=== PATIENT | female | born 1995 | race Caucasian/White ===

== ENCOUNTER 2018-03-14 21:47 | Emergency (ER) | payer OTHER ==
[~2018-03-14] VITALS: Ht 172.7 cm; Wt 83.9 kg
[~2018-03-14 21:47] MED LIST: RHOGAM300 MCG/SY IM
== END 2018-03-15 06:44 ==
LOC: ER 21:47
DX: O03.4 Incomplete spontaneous abortion without complication (principal)

== ENCOUNTER 2019-11-29 05:33 | Inpatient (IN) | payer OTHER ==
[~2019-11-29] VITALS: Ht 172.7 cm; Wt 90.7 kg
[2019-11-29] MEDS ORDERED: PRENATAL TABLE1 EACH PO (06:48)
== END 2019-12-01 16:51 | DRG 807 ==
LOC: LDR 05:33 → OB/GYN 05:33
PROVIDERS: ADMIT Obstetrics & Gynecology; ATTEND Obstetrics & Gynecology
PROC: 10E0XZZ Delivery of Products of Conception, External Approach (ICD-10-PCS; principal; 2019-11-29)
PROC: 4A1HXFZ Monitoring of Products of Conception, Cardiac Rhythm, External Approach (ICD-10-PCS; 2019-11-29)
DX: O80 Encounter for full-term uncomplicated delivery (principal); Z37.0 Single live birth; Z3A.39 39 weeks gestation of pregnancy

== ENCOUNTER 2022-10-08 15:26 | Outpatient (CLI) | payer OTHER ==
[~2022-10-08 15:26] MED LIST changes: +PRENATAL TABLE1 EACH PO
== END 2022-10-08 17:09 | disposition home or self-care (01) ==
LOC: PRENATAL 15:26
PROVIDERS: ATTEND Obstetrics & Gynecology Maternal & Fetal Medicine
DX: O36.80X0 Pregnancy with inconclusive fetal viability, not applicable or unspecified (principal); Z3A.14 14 weeks gestation of pregnancy

== ENCOUNTER 2022-11-26 11:35 | Outpatient (CLI) | payer OTHER | END 2022-11-26 13:22 | disposition home or self-care (01) | LOC: PRENATAL 11:35 | PROVIDERS: ATTEND Obstetrics & Gynecology Maternal & Fetal Medicine | DX: O35.9XX0 Maternal care for (suspected) fetal abnormality and damage, unspecified, not applicable or unspecified (principal); O35.3XX0 Maternal care for (suspected) damage to fetus from viral disease in mother, not applicable or unspecified; Z3A.21 21 weeks gestation of pregnancy ==

== ENCOUNTER 2023-02-26 14:48 | Outpatient (CLI) | payer OTHER | END 2023-02-26 15:59 | disposition home or self-care (01) | LOC: PRENATAL 14:48 | PROVIDERS: ATTEND Obstetrics & Gynecology Maternal & Fetal Medicine | DX: O26.849 Uterine size-date discrepancy, unspecified trimester (principal); O36.8199 Decreased fetal movements, unspecified trimester, other fetus; Z3A.34 34 weeks gestation of pregnancy ==

== ENCOUNTER 2023-03-15 18:27 | Outpatient (CLI) | payer OTHER ==
[2023-03-15 19:20] LABS: HEMATOCRIT 31.8 % (36.0-45.00); HEMOGLOBIN 10.3 g/dL (12.0-15.00); MEAN CELL VOLUME 88.4 fL (80.00-100.00); MEAN CORPUSCULAR HEMOGLOBIN 28.8 pg (27.00-32.0); MEAN CORPUSCULAR HGB CONC 32.6 g/dl (32.0-36.0); PLATELET COUNT 198 K/uL (150-450); RED BLOOD COUNT 3.59 M/uL (4.00-6.00)
== END 2023-03-16 00:25 | disposition home or self-care (01) ==
LOC: OBS/DEL 18:27
PROVIDERS: ATTEND Obstetrics & Gynecology
DX: O26.893 Other specified pregnancy related conditions, third trimester (principal); R10.2 Pelvic and perineal pain; Z3A.37 37 weeks gestation of pregnancy

== ENCOUNTER 2023-03-31 05:30 | Inpatient (IN) | payer OTHER ==
[~2023-03-31] VITALS: Ht 175.3 cm; Wt 94.3 kg
[2023-03-31 07:00] LABS: URINE APPEARANCE Clear; URINE BILIRRUBIN Negative (NEGATIVE); URINE BLOOD Negative; URINE COLOR Yellow; URINE GLUCOSE Negative (NEGATIVE); URINE LEUKOCYTE Moderate; URINE NITRATE Negative; URINE PROTEIN Negative (NEGATIVE); URINE UROBILINOGEN 0.2 E.U./dl
[2023-03-31 07:03] LABS: URINE BACTERIA 1719.8 uL (0.0-1933); URINE EPITHELIAL CELLS 60.1 uL (0.0-38.8); URINE RBC 5.8 uL (0.0-20.8); URINE WBC 34.3 uL (0.0-23.2)
[2023-03-31 07:11] LABS: HEMATOCRIT 32.6 % (36.0-45.00); MEAN CORPUSCULAR HEMOGLOBIN 29.4 pg (27.00-32.0); MEAN CORPUSCULAR HGB CONC 33.8 g/dl (32.0-36.0); PLATELET COUNT 185 K/uL (150-450); RED BLOOD COUNT 3.75 M/uL (4.00-6.00); RED CELL DISTRIBUTION WIDTH 15.3 % (11.5-14.5)
[2023-03-31 08:18] LABS: URINE CRYSTALS NEGATIVE /HPF
[2023-03-31 08:20] LABS: URINE YEAST NEGATIVE /hpf
[2023-04-01 01:26] LABS: HEMATOCRIT 32.3 % (36.0-45.00); MEAN CORPUSCULAR HEMOGLOBIN 28.8 pg (27.00-32.0); MEAN CORPUSCULAR HGB CONC 32.7 g/dl (32.0-36.0); PLATELET COUNT 172 K/uL (150-450); RED BLOOD COUNT 3.67 M/uL (4.00-6.00)
[2023-04-01 01:34] LABS: HEMOGLOBIN 10.6 g/dL (12.0-15.00)
== END 2023-04-02 15:41 | disposition home or self-care (01) | DRG 807 ==
LOC: LDR 05:30 → OB/GYN 05:30
PROVIDERS: ADMIT Obstetrics & Gynecology; ATTEND Obstetrics & Gynecology
PROC: 10E0XZZ Delivery of Products of Conception, External Approach (ICD-10-PCS; principal; 2023-03-31)
PROC: 0KQM0ZZ Repair Perineum Muscle, Open Approach (ICD-10-PCS; 2023-03-31)
PROC: 4A1HXCZ Monitoring of Products of Conception, Cardiac Rate, External Approach (ICD-10-PCS; 2023-03-31)
DX: O70.1 Second degree perineal laceration during delivery (principal); Z37.0 Single live birth; O99.824 Streptococcus B carrier state complicating childbirth; Z3A.39 39 weeks gestation of pregnancy; Z20.822 Contact with and (suspected) exposure to COVID-19